=== PATIENT | male | born 2000 | race Two or more races ===

== ENCOUNTER 2022-03-13 23:51 | Emergency (ER) | payer OTHER ==
[2022-03-14 01:51] LABS: CORONAVIRUS 2019 SARS-COV-2 NEGATIVE (NEGATIVE); INFLUENZA A NAA NEGATIVE (NEGATIVE)
[2022-03-14] MEDS ORDERED: ONDANSETRON ODT4 MG PO (02:32)
[2022-03-14 02:40] LABS: BILIRUBIN 1+ mg/dL (NEGATIVE); BLOOD NEGATIVE Ery/uL (NEGATIVE); CLARITY CLEAR (CLEAR); COLOR YELLOW (YELLOW); GLUCOSE (U) NORMAL (NORMAL); LEUKOCYTES NEGATIVE Leu/uL (NEGATIVE); NITRITE NEGATIVE (NEGATIVE); PROTEIN TRACE (LOW) mg/dL (NEGATIVE); SPECIFIC GRAVITY >=1.030 (1.001-1.030); UROBILINOGEN 0.2 mg/dL (0.2-1.0)
[2022-03-14 02:47] LABS: BACTERIA TRACE; SQUAMOUS EPITHELIAL CELLS RARE; URINARY WBC RARE
== END 2022-03-14 02:40 | disposition home or self-care (01) ==
LOC: FER 23:51
PROVIDERS: Emergency Medicine
DX: M54.50 Low back pain, unspecified (principal); R68.83 Chills (without fever); R51.9 Headache, unspecified; F17.200 Nicotine dependence, unspecified, uncomplicated; Z20.822 Contact with and (suspected) exposure to COVID-19; Z88.0 Allergy status to penicillin
CPT/HCPCS: 81001; J0780; J1200; J1885; J2405; J7030; U0002